=== PATIENT | female | born 1960 | race Caucasian/White ===

== ENCOUNTER 2020-07-25 22:06 | Emergency (ER) | payer MEDICAID ==
[~2020-07-25] VITALS: Ht 149.9 cm; Wt 109.1 kg
[~2020-07-25 22:06] MED LIST: BUDE180A3 IH; DIPH-423 PO; HYDR-3965 PO; IBUP-812 PO; PENI500T2 PO
[2020-07-25 22:19] VITALS: BP 141/94
[2020-07-25] MEDS ORDERED: ketorolac trometh. 30mg/ml inj. IM ONE (22:35)
[2020-07-25] MEDS ORDERED: morphine 4 MG/ML inj SYRINge IM ONE (22:35)
[2020-07-25] MEDS ORDERED: HYDR-3973 PO (22:38)
== END 2020-07-25 23:05 | disposition home or self-care (01) ==
LOC: ER 22:07
DX: M25.512 Pain in left shoulder (principal); J45.909 Unspecified asthma, uncomplicated; G89.29 Other chronic pain; Z90.710 Acquired absence of both cervix and uterus; Z88.1 Allergy status to other antibiotic agents; Z79.2 Long term (current) use of antibiotics; Z79.899 Other long term (current) drug therapy
CPT/HCPCS: 96372; 99283; J1885

== ENCOUNTER 2020-12-12 20:21 | Emergency (ER) | payer MEDICAID ==
[~2020-12-12] VITALS: Ht 152.4 cm; Wt 111.0 kg
[2020-12-12 21:07] VITALS: BP 172/104
[2020-12-12] MEDS ORDERED: LIDOcaine 5% patch TP STA (22:55)
[2020-12-12] MEDS ORDERED: ketorolac tromethamine 15mg/ml inj. IM ONE (22:55)
[2020-12-12] MEDS ORDERED: LIDOcaine 1% 30ml preserv. free vial IJ ONE (22:55)
[2020-12-12] MEDS ORDERED: LIDOcaine 1% (10mg/ml) 2ml vial ONE (23:01)
[2020-12-12] MEDS ORDERED: LIDO700A32 TOP (23:42)
[2020-12-12] MEDS ORDERED: DICL100G15 TOP (23:42)
== END 2020-12-12 23:30 | disposition home or self-care (01) ==
LOC: ER 20:22
DX: H65.21 Chronic serous otitis media, right ear (principal); R51.9 Headache, unspecified; J45.909 Unspecified asthma, uncomplicated; G89.29 Other chronic pain; Z90.710 Acquired absence of both cervix and uterus; Z88.1 Allergy status to other antibiotic agents; Z79.2 Long term (current) use of antibiotics; Z79.899 Other long term (current) drug therapy
CPT/HCPCS: 20552; 96372; 99284; J1885; J2001

== ENCOUNTER 2024-02-17 00:51 | Inpatient (IN) | payer MEDICAID ==
[~2024-02-17] VITALS: Ht 149.9 cm; Wt 118.2 kg
[~2024-02-17 00:51] MED LIST changes: +DICL100G15 TOP; +LIDO700A32 TOP
[2024-02-17] MEDS: diphenhydrAMINE 50 mg/ml inj IM ONE (01:17)
[2024-02-17] MEDS: LORazepam 2 mg/ml vial IM ONE (01:17)
[2024-02-17 01:48] LABS: BASOPHILS # (AUTO) 0.1 X10'3 (0-0.2); BASOPHILS % (AUTO) 0.4 % (0-1); EOSINOPHILS % (AUTO) 0.2 % (0-6); HEMATOCRIT 51.1 % (35.0-45.0); HEMOGLOBIN 16.7 g/dl (12.0-16.0); LYMPHOCYTES # (AUTO) 2.6 X10'3 (1.1-4.8); LYMPHOCYTES % (AUTO) 15.4 % (21-51); MEAN CORPUSCULAR HEMOGLOBIN 30.6 PG (27.0-31.0); MEAN CORPUSCULAR HGB CONC 32.7 g/dL (33.0-36.5); MEAN CORPUSCULAR VOLUME 93.4 FL (78-98); MONOCYTES # (AUTO) 1.6 X10'3 (0-0.9); MONOCYTES % (AUTO) 9.5 % (2-12); NEUTROPHILS # (AUTO) 12.4 X10'3 (1.8-7.7); NEUTROPHILS % (AUTO) 74.5 % (42-75); PLATELET COUNT 268 X10'3 (140-440); RED BLOOD COUNT 5.47 X10'6 (4.20-5.60); RED CELL DISTRIBUTION WIDTH 15.4 % (11.5-14.5); WHITE BLOOD COUNT 16.6 X10'3 (4.5-11.0)
[2024-02-17] MEDS: haloperidol lactate 5mg/ml inj IM ONE (01:51)
[2024-02-17 02:07] LABS: BILIRUBIN,URINE MODERATE (Neg); CLARITY,URINE CLOUDY (Clear); COLOR,URINE YELLOW (Yellow); GLUCOSE, URINE NEGATIVE (Neg); KETONES,URINE NEGATIVE (Neg); LEUKOCYTE ESTERASE ,URINE NEGATIVE (Neg); NITRITES, URINE NEGATIVE (Neg); OCCULT BLOOD,URINE TRACE-INTACT (Neg); PH,URINE 5.5 (4.8-8.0); PROTEIN,URINE NEGATIVE (Neg); UROBILINOGEN,URINE 0.2 E.U/dL (0.2-1.0)
[2024-02-17 02:09] LABS: UA COLLECTION TYPE CLN CATCH MIDSTREAM
[2024-02-17] MEDS ORDERED: BACL10TA2 PO (02:11)
[2024-02-17] MEDS ORDERED: IBUP-1985 PO (02:11)
[2024-02-17] MEDS ORDERED: TRAM50TA2 PO (02:11)
[2024-02-17 02:12] LABS: ANION GAP 16 (8-16); BLOOD UREA NITROGEN 33 MG/DL (7-18); BUN/CREATININE RATIO 10.2 (10.0-20.0); CALCIUM 9.2 MG/DL (8.5-10.1); CHLORIDE 105 MMOL/L (99-107); CREATININE 3.23 MG/DL (0.40-0.90); ETHANOL < 10 MG/DL (<10); GLUCOSE 106 MG/DL (70-104); POTASSIUM 3.9 MMOL/L (3.5-5.1); SODIUM 140 MMOL/L (135-145); THYROID STIMULATING HORMONE 2.89 ulU/ml (0.34-4.50); eCRCL 12 ML/MIN; eGFR 14 ML/MIN
[2024-02-17 02:16] LABS: BACTERIA,URINE 1+ /HPF (Neg); MUCUS STRANDS FEW /LPF (Neg); RBC,URINE 0-2 /HPF (0-2); SQUAMOUS EPITHELIAL CELL,UR FEW /LPF (FEW); TRANSITIONAL EPI CELLS,URINE FEW /HPF; WBC,URINE 0-4 /HPF (0-4)
[2024-02-17 02:17] LABS: CAL OXALATE CRYSTALS 3+ /HPF (NEGATIVE); HYALINE CASTS >30 /LPF (NEGATIVE)
[2024-02-17] MEDS: normal saline 1000ml 1,000 ML IV ONE ×2 (02:19→03:33)
[2024-02-17 02:23] LABS: URINE AMPHETAMINE SCREEN POSITIVE (Neg); URINE BARBITUATE SCREEN NEGATIVE (Neg); URINE BENZODIAZEPINES SCREEN NEGATIVE (Neg); URINE CANNABINOID SCREEN NEGATIVE (Neg); URINE COCAINE SCREEN NEGATIVE (Neg); URINE METHADONE SCREEN NEGATIVE (Neg); URINE OPIATE SCREEN NEGATIVE (Neg); URINE PHENCYCLIDINE SCREEN NEGATIVE (Neg)
[2024-02-17 03:33] LABS: CREATINE KINASE 1363 U/L (26-192)
[2024-02-17] MEDS ORDERED: magnesium Cl slow-release 64mg tablet PO PRN (04:10)
[2024-02-17] MEDS ORDERED: magnesium hydroxide 30ml (MOM) UD suspension PO PRN (04:10)
[2024-02-17] MEDS ORDERED: acetaminophen 325mg tablet PO PRN (04:10)
[2024-02-17] MEDS ORDERED: potassium Cl 40MEQ/1/2NS 520ml 520 ML IV PRN (04:10)
[2024-02-17] MEDS ORDERED: magnesium sulf-water 4G/100mL 100 ML IV PRN (04:10)
[2024-02-17] MEDS ORDERED: HYDROcodone/acetaminophen 5mg/325mg tablet PO PRN (04:10)
[2024-02-17] MEDS ORDERED: mag hydrox/Alum hydrox/simeth 30ml oral suspension PO PRN (04:10)
[2024-02-17] MEDS ORDERED: potassium Cl 20 mEq SR tablet PO PRN ×2 (04:10)
[2024-02-17] MEDS ORDERED: ondansetron/PF 4mg/2ml inj IV PRN (04:10)
[2024-02-17] MEDS: normal saline 1000ml 1,000 ML IV SCH ×2 (04:59→12:15)
[2024-02-17] MEDS ORDERED: LORazepam 2 mg/ml vial IV PRN (05:15)
[2024-02-17] MEDS ORDERED: diphenhydrAMINE 50 mg/ml inj IV PRN (05:15)
[2024-02-17] MEDS ORDERED: haloperidol lactate 5mg/ml inj IM PRN (05:15)
[2024-02-17 06:21] LABS: MAGNESIUM 2.2 MG/DL (1.5-2.4); POTASSIUM 4.3 MMOL/L (3.5-5.1)
[2024-02-17] MEDS: heparin, porcine 5000 units/ml vial SQ SCH (08:00)
[2024-02-17] MEDS: docusate sod 100mg capsule PO SCH (08:00)
[2024-02-17] MEDS: hydrALAZINE 20mg/ml inj. IV ONE (09:49)
[2024-02-17] MEDS: PERFLUTREN PROTEIN-A MICROSPHR (Optison) 0.22 MG/ML 3ML VIAL IV ONE (10:20)
[2024-02-17] MEDS: morphine 2 MG/ML inj. syringe IV PRN (10:29)
[2024-02-17] MEDS ORDERED: hydrALAZINE 20mg/ml inj. IV PRN (10:30)
[2024-02-17 11:30] VITALS: BP 123/69; PULSE 97; RESP 16; TEMP 98.7; O2SAT 97
[2024-02-17 13:59] LABS: OSMOLALITY 315 MOSM/K (280-300)
[2024-02-17 14:51] LABS: ABG BASE EXCESS -5.7 mmol/L (-2.0-2.0); ABG HCO3 20.2 mmol/L (22.0-26.0); ABG OXYGEN SATURATION 93.3 % (92-98.5); ABG PCO2 (T) 41.4 mmHg (32.0-45.0); ABG PH (T) 7.308 (7.350-7.450); ABG PO2 (T) 67.5 mmHg (75.0-100.0); ALLEN'S TEST POSITIVE; FCOHb 0.7 % (0.5-1.5); FHHb 6.6 % (0.0-5.0); FLOW 2 L/min; FMetHb 0.1 % (0.0-1.5); FO2Hb 92.6 % (94-97); MODE NASAL CANNULA; PATIENT TEMPERATURE 37.1; TOTAL HEMOGLOBIN 16.8 G/dl (12.0-16.0)
[2024-02-17 15:00] VITALS: BP 124/99; PULSE 100; RESP 14; TEMP 97.8; O2SAT 92
[2024-02-17] MEDS: ipratropium/albuterol 3ml nebule NEB PRN (15:04)
[2024-02-17 15:06] VITALS: PULSE 105; RESP 22; O2SAT 92
[2024-02-17 15:13] VITALS: PULSE 112; RESP 22
[2024-02-17 19:13] LABS: CREATINE KINASE 3532 U/L (26-192)
[2024-02-17 21:03] LABS: ALANINE AMINOTRANSFERASE 38 U/L (12-78); ALBUMIN 2.8 G/DL (3.4-5.0); ALBUMIN/GLOBULIN RATIO 0.8 (1.1-1.5); ALKALINE PHOSPHATASE 105 IU/L (46-116); ANION GAP 8 (8-16); ASPARTATE AMINO TRANSFERASE 70 U/L (10-37); BILIRUBIN,TOTAL 1.3 MG/DL (0.1-1.0); BLOOD UREA NITROGEN 22 MG/DL (7-18); BUN/CREATININE RATIO 18.3 (10.0-20.0); CALCIUM 8.1 MG/DL (8.5-10.1); CHLORIDE 113 MMOL/L (99-107); GLUCOSE 127 MG/DL (70-104); SODIUM 144 MMOL/L (135-145); TOTAL PROTEIN 6.4 G/DL (6.4-8.2); eCRCL 33 ML/MIN; eGFR 45 ML/MIN
[2024-02-17 21:05] LABS: SALICYLATE 0.4 MG/DL (4.0-20.0)
[2024-02-17 21:06] LABS: CREATINE KINASE 3018 U/L (26-192)
[2024-02-17 21:08] LABS: ACETAMINOPHEN < 2.0 UG/ML (10-30)
[2024-02-17 21:21] VITALS: PULSE 100; RESP 16; O2SAT 94
[2024-02-17 22:00] VITALS: BP 119/69; PULSE 124; RESP 20; TEMP 97.7; O2SAT 94; O2SAT 97
[2024-02-18] VITALS (8 sets, daily range): BP systolic 121–142; BP diastolic 50–89; PULSE 76–100; RESP 14–24; TEMP 98–98.9; O2SAT 95–97
[2024-02-18 05:55] LABS: ALANINE AMINOTRANSFERASE 33 U/L (12-78); ALBUMIN 2.7 G/DL (3.4-5.0); ALBUMIN/GLOBULIN RATIO 0.7 (1.1-1.5); ALKALINE PHOSPHATASE 105 IU/L (46-116); ANION GAP 8 (8-16); ASPARTATE AMINO TRANSFERASE 69 U/L (10-37); BILIRUBIN,TOTAL 1.3 MG/DL (0.1-1.0); BLOOD UREA NITROGEN 19 MG/DL (7-18); BUN/CREATININE RATIO 17.9 (10.0-20.0); CALCIUM 8.3 MG/DL (8.5-10.1); CHLORIDE 114 MMOL/L (99-107); CREATININE 1.06 MG/DL (0.40-0.90); GLUCOSE 102 MG/DL (70-104); MAGNESIUM 2.1 MG/DL (1.5-2.4); POTASSIUM 3.8 MMOL/L (3.5-5.1); SODIUM 147 MMOL/L (135-145); TOTAL CARBON DIOXIDE 24.9 MMOL/L (24-32); TOTAL PROTEIN 6.4 G/DL (6.4-8.2); eCRCL 37 ML/MIN; eGFR 52 ML/MIN
[2024-02-18 05:56] LABS: BASOPHILS % (AUTO) 0.2 % (0-1); EOSINOPHILS % (AUTO) 0.4 % (0-6); HEMATOCRIT 45.1 % (35.0-45.0); HEMOGLOBIN 14.9 g/dl (12.0-16.0); LYMPHOCYTES % (AUTO) 16.7 % (21-51); MEAN CORPUSCULAR HEMOGLOBIN 31.3 PG (27.0-31.0); MEAN CORPUSCULAR HGB CONC 33.1 g/dL (33.0-36.5); MEAN CORPUSCULAR VOLUME 94.5 FL (78-98); MEAN PLATELET VOLUME 9.1 FL (7.4-10.4); MONOCYTES # (AUTO) 0.8 X10'3 (0-0.9); MONOCYTES % (AUTO) 7.1 % (2-12); NEUTROPHILS # (AUTO) 8.9 X10'3 (1.8-7.7); NEUTROPHILS % (AUTO) 75.6 % (42-75); PLATELET COUNT 211 X10'3 (140-440); RED BLOOD COUNT 4.77 X10'6 (4.20-5.60); RED CELL DISTRIBUTION WIDTH 15.8 % (11.5-14.5); WHITE BLOOD COUNT 11.8 X10'3 (4.5-11.0)
[2024-02-19 02:00] VITALS: BP 154/84; PULSE 87; RESP 25; TEMP 97.8; O2SAT 95
[2024-02-19 06:00] VITALS: BP 148/82; PULSE 91; RESP 14; TEMP 97.1; O2SAT 96
[2024-02-19 06:19] LABS: BASOPHILS % (AUTO) 0.3 % (0-1); EOSINOPHILS # (AUTO) 0.2 X10'3 (0-0.9); EOSINOPHILS % (AUTO) 1.8 % (0-6); HEMATOCRIT 44.9 % (35.0-45.0); LYMPHOCYTES # (AUTO) 2.2 X10'3 (1.1-4.8); LYMPHOCYTES % (AUTO) 23.9 % (21-51); MEAN CORPUSCULAR HEMOGLOBIN 31.5 PG (27.0-31.0); MEAN CORPUSCULAR HGB CONC 33.3 g/dL (33.0-36.5); MEAN CORPUSCULAR VOLUME 94.4 FL (78-98); MEAN PLATELET VOLUME 9.9 FL (7.4-10.4); MONOCYTES # (AUTO) 0.7 X10'3 (0-0.9); MONOCYTES % (AUTO) 7.7 % (2-12); NEUTROPHILS % (AUTO) 66.3 % (42-75); PLATELET COUNT 187 X10'3 (140-440); RED BLOOD COUNT 4.75 X10'6 (4.20-5.60); RED CELL DISTRIBUTION WIDTH 15.5 % (11.5-14.5); WHITE BLOOD COUNT 9.1 X10'3 (4.5-11.0)
[2024-02-19 06:34] LABS: ALANINE AMINOTRANSFERASE 33 U/L (12-78); ALBUMIN 2.6 G/DL (3.4-5.0); ALBUMIN/GLOBULIN RATIO 0.7 (1.1-1.5); ALKALINE PHOSPHATASE 103 IU/L (46-116); ANION GAP 8 (8-16); ASPARTATE AMINO TRANSFERASE 70 U/L (10-37); BILIRUBIN,TOTAL 1.3 MG/DL (0.1-1.0); BLOOD UREA NITROGEN 8 MG/DL (7-18); BUN/CREATININE RATIO 11.3 (10.0-20.0); CALCIUM 8.4 MG/DL (8.5-10.1); CHLORIDE 106 MMOL/L (99-107); CREATININE 0.71 MG/DL (0.40-0.90); GLUCOSE 68 MG/DL (70-104); MAGNESIUM 1.8 MG/DL (1.5-2.4); POTASSIUM 3.5 MMOL/L (3.5-5.1); SODIUM 139 MMOL/L (135-145); TOTAL CARBON DIOXIDE 24.8 MMOL/L (24-32); TOTAL PROTEIN 6.5 G/DL (6.4-8.2); eCRCL 55 ML/MIN; eGFR 83 ML/MIN
[2024-02-19 11:00] VITALS: BP 144/86; PULSE 88; RESP 23; TEMP 98.4; O2SAT 92
[2024-02-19 15:00] VITALS: BP 151/86; PULSE 88; RESP 19; TEMP 98.1; O2SAT 93
[2024-02-19 18:00] VITALS: BP 141/97; PULSE 95; RESP 20; TEMP 98.4; O2SAT 93
[2024-02-19 22:00] VITALS: BP 141/83; PULSE 87; RESP 16; TEMP 97; O2SAT 92
[2024-02-20 02:00] VITALS: BP 165/99; PULSE 93; RESP 19; TEMP 97; O2SAT 95
[2024-02-20 04:56] LABS: BASOPHILS # (AUTO) 0.1 X10'3 (0-0.2); BASOPHILS % (AUTO) 0.8 % (0-1); EOSINOPHILS # (AUTO) 0.2 X10'3 (0-0.9); EOSINOPHILS % (AUTO) 1.6 % (0-6); HEMATOCRIT 46.9 % (35.0-45.0); HEMOGLOBIN 15.6 g/dl (12.0-16.0); LYMPHOCYTES # (AUTO) 2.6 X10'3 (1.1-4.8); LYMPHOCYTES % (AUTO) 26.5 % (21-51); MEAN CORPUSCULAR HEMOGLOBIN 30.6 PG (27.0-31.0); MEAN CORPUSCULAR HGB CONC 33.3 g/dL (33.0-36.5); MEAN PLATELET VOLUME 9.3 FL (7.4-10.4); MONOCYTES # (AUTO) 0.7 X10'3 (0-0.9); NEUTROPHILS # (AUTO) 6.4 X10'3 (1.8-7.7); NEUTROPHILS % (AUTO) 64.1 % (42-75); PLATELET COUNT 219 X10'3 (140-440)
[2024-02-20 05:13] LABS: ALANINE AMINOTRANSFERASE 46 U/L (12-78); ALBUMIN 3.1 G/DL (3.4-5.0); ALBUMIN/GLOBULIN RATIO 0.7 (1.1-1.5); ALKALINE PHOSPHATASE 135 IU/L (46-116); ANION GAP 9 (8-16); ASPARTATE AMINO TRANSFERASE 95 U/L (10-37); BILIRUBIN,TOTAL 1.2 MG/DL (0.1-1.0); BLOOD UREA NITROGEN 10 MG/DL (7-18); BUN/CREATININE RATIO 12.8 (10.0-20.0); CALCIUM 8.8 MG/DL (8.5-10.1); CHLORIDE 106 MMOL/L (99-107); CREATININE 0.78 MG/DL (0.40-0.90); GLUCOSE 98 MG/DL (70-104); MAGNESIUM 1.8 MG/DL (1.5-2.4); POTASSIUM 3.4 MMOL/L (3.5-5.1); SODIUM 141 MMOL/L (135-145); TOTAL CARBON DIOXIDE 25.9 MMOL/L (24-32); TOTAL PROTEIN 7.3 G/DL (6.4-8.2); eCRCL 50 ML/MIN; eGFR 75 ML/MIN
[2024-02-20 06:00] VITALS: BP 159/95; PULSE 83; RESP 20; TEMP 98; O2SAT 95
[2024-02-20] MEDS: potassium Cl 20 mEq SR tablet PO PRN (07:49)
[2024-02-20 11:00] VITALS: BP 152/91; PULSE 88; RESP 20; TEMP 98.1; O2SAT 96
== END 2024-02-20 14:10 | disposition home or self-care (01) | DRG 812 ==
LOC: ER 00:52 → ED HOLD 04:18 → SUR 3N 11:05 → PCU 3S 14:20
PROVIDERS: ADMIT Internal Medicine Sleep Medicine; ATTEND Family Medicine
DX: T43.621A Poisoning by amphetamines, accidental (unintentional), initial encounter (principal); G92.8 Other toxic encephalopathy; E44.1 Mild protein-calorie malnutrition; E87.20 Acidosis, unspecified; E66.2 Morbid (severe) obesity with alveolar hypoventilation; F41.9 Anxiety disorder, unspecified; G89.29 Other chronic pain; J45.909 Unspecified asthma, uncomplicated; M54.9 Dorsalgia, unspecified; Z66 Do not resuscitate; G62.9 Polyneuropathy, unspecified; F32.A Depression, unspecified; Z20.822 Contact with and (suspected) exposure to COVID-19; Y92.89 Other specified places as the place of occurrence of the external cause; Z68.43 Body mass index [BMI] 50.0-59.9, adult; Z90.710 Acquired absence of both cervix and uterus; Z79.899 Other long term (current) drug therapy; Z88.1 Allergy status to other antibiotic agents
CPT/HCPCS: 36415; 36600; 70450; 71045; 76770; 80048; 80053; 80305; 80320; 80329; 81001; 82140; 82550; 82803; 83036; 83605; 83735; 83930; 84132; 84145; 84443; 85018; 85025; 87081; 87811; 92508; 92616; 93005; 93308; 94640; 94760; 96372; 97162; 97530; 97535; 99285; A4615; G0378; J0360; J1200; J1630; J1644; J2060; J2270; J7030